=== PATIENT | female | born 1980 | race Caucasian/White ===

== ENCOUNTER 2016-07-27 19:29 | Emergency (ER) | payer MEDICAID ==
[2016-07-27 19:49] LABS: BILIRUBIN,URINE NEGATIVE (NEGATIVE)
[2016-07-27 19:51] LABS: HCG UR QUAL NEGATIVE; UA w/ MICROSCOPIC CHARGE YES
[2016-07-27 19:52] LABS: UR CULTURE IF IND NOT INDICATED; WBC,URINE 0-3 /HPF (0-5)
--- NOTE | 2016-07-27 20:48 | ED Physician Documentation ---
PD HPI FEMALE - Stated complaint Stated Complaint: FEMALE - Chief complaint Chief Complaint: Abd Pain - History obtained from History obtained from: Patient - History of Present Illness Timing - onset: How many days ago (1-2) Timing - duration: Days Timing - details: Abrupt onset, Still present Associated symptoms: Pelvic pain, Vaginal bleeding. No: Fever, Vaginal discharge, Genital sore/lesion, Dysuria, Urinary frequency Contributing factors: Sexually active. 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: section, 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 - Present Medications Home Medications: Ambulatory Orders Medication Instructions Recorded Confirmed Hydrocodone/Acetaminophen [Serafina 1 each PO Q6H PRN #20 tablet 07/27/16 5-325 Tablet] Naproxen [Naprosyn] 500 mg PO BID PRN #20 tablet 07/27/16 - Allergies Allergies/Adverse Reactions: Allergies Allergy/AdvReac Type Severity Reaction Status Date / Time No Known Drug Allergies Allergy Verified 07/27/16 19:36 - Social History Does the pt smoke?: Yes Smoking Status: Current every day smoker Does the pt drink ETOH?: No Does the pt have substance abuse?: No - Immunizations Immunizations are current?: Yes Immunizations: TDAP current <10years, Other immun not current - POLST Patient has POLST: No PD ED PE NORMAL - Vitals Vital signs reviewed: Yes - General General: Alert and oriented X 3, No acute distress, Well developed/nourished - HEENT HEENT: Pharynx benign - Neck Neck: Supple, no meningeal sign, No adenopathy - Cardiac Cardiac: RRR, No murmur - Respiratory Respiratory: Clear bilaterally - Abdomen Abdomen: Normal bowel sounds, Soft, Non distended, No organomegaly, Other (mild tender suprapubic and LLQ area. ) - Female Female : Senior Analyst Programmer present, Other (external normal. Some dark blood in vault. No aparent cervicitis. No discharge. ) - Rectal Rectal: Deferred Results - Vitals Vitals: Oxygen O2 Source Room air - Labs Labs: Microbiology 07/27/16 21:33 Wet Prep - Final Vaginal Laboratory Tests 07/27/16 19:40 Urine Color YELLOW Urine Clarity CLEAR Urine pH 6.0 Ur Specific Lee 1.025 Urine Protein TRACE Urine Glucose (UA) NEGATIVE Urine Ketones TRACE Urine Occult Blood LARGE H Urine Nitrite NEGATIVE Urine Bilirubin NEGATIVE Urine Urobilinogen 0.2 (NORMAL) Ur Leukocyte Esterase NEGATIVE Urine RBC 11-25 H Urine WBC 0-3 Ur Squamous Epith Cells FEW Squamous Urine Bacteria Rare Ur Microscopic Review INDICATED Urine Culture Comments NOT INDICATED Urine HCG, Qual NEGATIVE PD MEDICAL DECISION MAKING - ED course Complexity details: considered differential (vaginal bleeding and cramps. No signs STDs on exam, obtained cultures. Not . Discussed doing U/S and we opted not to at this time. Consider DUB, cyst, fibroid.), d/w patient Departure - Departure Disposition: 01 Home, Self Care Clinical Impression: Pelvic pain, Vaginal bleeding Condition: Stable Record reviewed to determine appropriate education?: Yes Instructions: ED Bleed Irregular Vaginal Prescriptions: Naproxen [Naprosyn] 500 mg PO BID PRN #20 tablet PRN Reason: Pain Hydrocodone/Acetaminophen [Serafina 5-325 Tablet] 1 each PO Q6H PRN #20 tablet PRN Reason: Pain Comments: Drink lots of fluids. Naproxen (or Ibuprofen) twice daily for 7-10 days. Add Tylenol or hydrocodone as needed for cramps/pains. Recheck if not improved over the next few days. Return if worse bleeding or pain, fever, vomiting, dizzy/ lightheaded, other concerns. Discharge Date/Time: 07/27/16 21:50
[2016-07-27] MEDS ORDERED: HYDROcod/ACET 5/325 Prepack 6 PO ONE ×2 (21:04→21:36)
[2016-07-27 21:50] VITALS: BP 119/76
--- NOTE | 2016-07-29 10:42 | ED Physician Documentation ---
ED Addendum - Addendum Addendum: 07/29/16 10:42 wet prep came back after patient left (long time getting it), and showed clue cells. Will call pt to add FLagyl 500 bid for a week.
== END 2016-07-27 21:50 | disposition home or self-care (01) ==
LOC: ED 19:29
DX: R10.2 Pelvic and perineal pain (principal); N93.9 Abnormal uterine and vaginal bleeding, unspecified; F17.200 Nicotine dependence, unspecified, uncomplicated
CPT/HCPCS: 81001; 81003; 81025; 87086; 87210; 87491; 87591; 99283

== ENCOUNTER 2017-02-12 21:08 | Emergency (ER) | payer MEDICAID ==
[2017-02-12 21:30] LABS: RAPID STREP SCREEN REAGENT QC YELLOW (YELLOW)
[2017-02-12] MEDS ORDERED: diphenhydrAMINE ELIXIR 25 MG/10 ML UDC PO STA (21:40)
[2017-02-12] MEDS ORDERED: DEXAMETHASONE 10 MG/ML VIAL PO STA (21:40)
[2017-02-12] MEDS ORDERED: cephALEXin 250 MG CAPSULE PO STA (21:40)
[2017-02-12] MEDS ORDERED: LIDOCAINE VISCOUS 2% 15 ML UDC MM STA (21:40)
[2017-02-12] MEDS ORDERED: HYDROcod/ACETAM 5/325 MG TABLET PO STA (21:40)
--- NOTE | 2017-02-12 21:58 | ED Physician Documentation ---
PD HPI URI - Stated complaint Stated Complaint: THROAT PX/FEVER - Chief complaint Chief Complaint: Heent - History obtained from History obtained from: Patient - History of Present Illness Timing - onset: Yesterday Timing duration: Days (2) Timing details: Abrupt onset, Still present Associated symptoms: Fever, Chills, Sore throat, Swollen nodes. No: Dyspnea, NVD Contributing factors: No: Sick contact, Travel Similar symptoms before: Has not had sx before Recently seen: Not recently seen Review of Systems Constitutional: reports: Fever, Chills, Myalgias Nose: denies: Rhinorrhea / runny nose, Congestion Throat: reports: Sore throat Respiratory: denies: Cough GI: denies: Nausea, Vomiting, Diarrhea Skin: denies: Rash, Lesions Musculoskeletal: denies: Extremity swelling PD PAST MEDICAL HISTORY - Past Medical History Past Medical History: Yes Cardiovascular: None Respiratory: None Neuro: None Endocrine/Autoimmune: None - Past Surgical History 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, 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 - Present Medications Home Medications: Ambulatory Orders Medication Instructions Recorded Confirmed Hydrocodone/Acetaminophen [Bristow 1 each PO Q6H PRN #20 tablet 07/27/16 5-325 Tablet] Naproxen [Naprosyn] 500 mg PO BID PRN #20 tablet 07/27/16 Cephalexin [Keflex] 500 mg PO QID #24 capsule 02/12/17 Dexamethasone [Decadron] 4 mg PO DAILY #5 tablet 02/12/17 HYDROcod/ACETAM 5/325 [Bristow 5/325] 1 tab PO Q6H PRN #15 tablet 02/12/17 - Allergies Allergies/Adverse Reactions: Allergies Allergy/AdvReac Type Severity Reaction Status Date / Time No Known Drug Allergies Allergy Verified 07/27/16 19:36 - Social History Does the pt smoke?: Yes Smoking Status: Current every day smoker Does the pt drink ETOH?: No Does the pt have substance abuse?: No - Immunizations Immunizations are current?: Yes Immunizations: TDAP current <10years, Other immun not current - POLST Patient has POLST: No PD ED PE NORMAL - Vitals Vital signs reviewed: Yes - General General: Alert and oriented X 3, Well developed/nourished, Other (appears in pain) - HEENT HEENT: No: Pharynx benign (redness and exudate at tonsils both sides. No peritonsillar edema nor uvular deviation. ) - Neck Neck: Supple, no meningeal sign, Other (anterior adenopathy both sides. ) - Cardiac Cardiac: RRR, No murmur - Respiratory Respiratory: Clear bilaterally - Derm Derm: Normal color, Warm and dry, No rash - Neuro Neuro: Alert and oriented X 3, No motor deficit, Normal speech Results - Vitals Vitals: Vital Signs - 24 hr 02/12/17 02/12/17 21:12 22:05 Temperature 38.1 C H Heart Rate 122 H 102 H Respiratory 18 18 Rate Blood Pressure 123/76 119/66 O2 Saturation 97 98 Oxygen O2 Source Room air - Labs Labs: Laboratory Tests 02/12/17 21:14 Group A Strep Rapid POSITIVE H PD MEDICAL DECISION MAKING - ED course Complexity details: considered differential (exam c/w strep. No peritonsillar edema. ), d/w patient Departure - Departure Disposition: 01 Home, Self Care Clinical Impression: Acute streptococcal tonsillitis Qualifiers: Streptococcal tonsillitis recurrence: non-recurrent Qualified Code(s): J03.00 - Acute streptococcal tonsillitis, unspecified Condition: Stable Record reviewed to determine appropriate education?: Yes Instructions: ED Strep Pharyngitis Conf Prescriptions: Cephalexin [Keflex] 500 mg PO QID #24 capsule Dexamethasone [Decadron] 4 mg PO DAILY #5 tablet HYDROcod/ACETAM 5/325 [Bristow 5/325] 1 tab PO Q6H PRN #15 tablet PRN Reason: Pain Comments: Drink lots of fluids. Tylenol or ibuprofen if needed for pain and fever. Add hydrocodone if needed for pain. For the infection use cephalexin 4 times a day for the next 6 days. For the inflammation used Decadron daily for 5 more days. Recheck if not improving quite well over the next 2-3 days. Return sooner if worsening. Discharge Date/Time: 02/12/17 22:10
[2017-02-12] MEDS ORDERED: cephALEXin 250 MG CAPSULE PO ONE (21:59)
[2017-02-12] MEDS ORDERED: diphenhydrAMINE ELIXIR 25 MG/10 ML UDC PO ONE (22:00)
[2017-02-12] MEDS ORDERED: HYDROcod/ACETAM 5/325 MG TABLET ONE (22:00)
[2017-02-12] MEDS ORDERED: DEXAMETHASONE 10 MG/ML VIAL ONE (22:00)
[2017-02-12] MEDS ORDERED: LIDOCAINE VISCOUS 2% 15 ML UDC MM ONE (22:00)
[2017-02-12 22:16] VITALS: BP 119/66
== END 2017-02-12 22:10 | disposition home or self-care (01) ==
LOC: ED 21:08
DX: J03.00 Acute streptococcal tonsillitis, unspecified (principal); F17.200 Nicotine dependence, unspecified, uncomplicated
CPT/HCPCS: 87430; 99283; A9270

== ENCOUNTER 2017-03-01 15:31 | Emergency (ER) | payer MEDICAID ==
[2017-03-01 15:47] VITALS: BP 117/73
[2017-03-01 17:46] LABS: BASOPHILS # (AUTO) 0.2 10^3/uL (0.0-0.1); BASOPHILS % (AUTO) 2.2 %; EOSINOPHILS # (AUTO) 0.3 10^3/uL (0.0-0.7); EOSINOPHILS % (AUTO) 3.6 %; HGB - HEMOGLOBIN 13.2 g/dL (12.0-16.0); LYMPHOCYTES # (AUTO) 2.4 10^3/uL (1.5-3.5); LYMPHOCYTES % (AUTO) 31.8 %; MEAN CORPUSCULAR HEMOGLOBIN 29.8 pg (27.0-31.0); MEAN CORPUSCULAR VOLUME 90.3 fL (81.0-99.0); MEAN PLATELET VOLUME 6.5 fL (7.9-10.8); MONOCYTES # (AUTO) 0.6 10^3/uL (0.0-1.0); MONOCYTES % (AUTO) 8.1 %; NEUTROPHILS # (AUTO) 4.1 10^3/uL (1.5-6.6); NEUTROPHILS % (AUTO) 54.3 %; PLT - PLATELET COUNT 326 10^3/uL (130-450); RED BLOOD COUNT 4.44 10^6/uL (4.20-5.40); RED CELL DISTRIBUTION WIDTH 13.8 % (12.0-15.0); WHITE BLOOD COUNT 7.5 x10^3/uL (4.8-10.8)
--- NOTE | 2017-03-01 18:34 | ED Physician Documentation ---
History of Present Illness - Stated complaint Stated Complaint: RASH/NAUSEA - Chief complaint Chief Complaint: Wound - Additonal information Additional information: hx from pt 36 female seen 02/12 for sore throat + strep txed with keflex and throat is better on the last day of antibiotics she developed a papular rash mostly to her torso , no palms involved no oral lesion, not itchy or painful despite being off antibiotics for 10 days now the rash persists no fever off and on BERGMAN nneck pain but mostly side to side and able to full flex Review of Systems Constitutional: denies: Fever Throat: denies: Sore throat Skin: reports: Rash Musculoskeletal: reports: Neck pain Neurologic: reports: Headache (intermittent) Immunocompromised: denies: Immunocompromised PD PAST MEDICAL HISTORY - Past Medical History Cardiovascular: None Respiratory: None Neuro: None Endocrine/Autoimmune: None - Past Surgical History 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, 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 - Allergies Allergies/Adverse Reactions: Allergies Allergy/AdvReac Type Severity Reaction Status Date / Time No Known Drug Allergies Allergy Verified 03/01/17 15:46 - Social History Does the pt smoke?: Yes Smoking Status: Current every day smoker Does the pt drink ETOH?: No Does the pt have substance abuse?: No - Immunizations Immunizations are current?: Yes Immunizations: TDAP current <10years, Other immun not current - POLST Patient has POLST: No PD ED PE NORMAL - Vitals Vital signs reviewed: Yes - HEENT HEENT: Moist mucous membranes, Pharynx benign, Other (no oral lesions) - Neck Neck: Supple, no meningeal sign - Cardiac Cardiac: RRR - Respiratory Respiratory: No respiratory distress, Clear bilaterally - Abdomen Abdomen: Soft, Non tender - Derm Derm: Other (dark pink papular rash to torso mostly sparing ext, mild on face, no palm lesions, no petecchiae, no purpra, no vesciles, no pustules, no target lesions) - Neuro Neuro: Alert and oriented X 3, whitewasher 2-12 intact, No motor deficit, No sensory deficit Results - Vitals Vitals: Vital Signs - 24 hr 03/01/17 15:43 Temperature 36.4 C L Heart Rate 103 H Respiratory 14 Rate Blood Pressure 117/73 O2 Saturation 100 Oxygen O2 Source Room air - Labs Labs: Laboratory Tests 12/29/17 12/29/17 17:40 17:40 WBC 7.5 RBC 4.44 Hgb 13.2 Hct 40.1 MCV 90.3 MCH 29.8 MCHC 33.0 RDW 13.8 Plt Count 326 MPV 6.5 L Neut # 4.1 Lymph # 2.4 Clay # 0.6 Eos # 0.3 Baso # 0.2 H Absolute Nucleated RBC 0.01 Nucleated RBC % 0.1 Infectious Clay Assay NEGATIVE PD MEDICAL DECISION MAKING - ED course ED course: looks most like a drug rxn but lasting 10 days after dc antibiotics is unusual neg mono does NOT look like sepsis, salas sheila, varicella, measles, lyme pt reports int BERGMAN and neck pain but sx started while she was on ab and have now been going on for 10 days and she is afebrile, supple neck and well appearing - I do not think this is meningitis I am not actually sure what exactly is causing the rash - favor viral exanthem aor drug rxn but hx and time frame not fully supportive but do not think a life threatening process and feel safe to dc for now, follow up derm Saturday after if sx persists and return to ER of worse ( I will be working every day this ) Departure - Departure Disposition: Home, Self Care Clinical Impression: Rash Condition: Good Follow-Up: [facility] [Provider Group] (call to schedule an ER follow up) Comments: The labs are fine The mono test was negative. Your white blood cell and platelet counts are fine. your symptoms and the rash and the time frame do not suggest this is sepsis, meningitis, measles, chicken pox, salas sheila syndrome or other dangerous or life threatening rashes. But I am not sure exactly what is causing the rash. I suspect it is a drug reaction from your recent antibiotics or a viral exanthem - but it has been going on longer than expected for either I think it is safe for you to go home for now but I would like you to see dermatology next week for further evaluation - please call Saturday to schedule Return to the ER if worse over the
== END 2017-03-01 19:11 | disposition home or self-care (01) ==
LOC: ED 15:31
DX: R21 Rash and other nonspecific skin eruption (principal); F17.200 Nicotine dependence, unspecified, uncomplicated
CPT/HCPCS: 36415; 85025; 86308; 99282; 99283